=== PATIENT | male | born 1975 | race Caucasian/White ===

== ENCOUNTER → 2024-12-10 | Outpatient (CLI) | payer OTHER, SELFPAY ==
[2024-12-10 09:54] LABS: Glucose Estimated Average 272 mg/dL (80-131); Hemoglobin A1C 11.1 % Hgb (4.8-6.0)
[2024-12-10 09:58] LABS: Alanine Aminotransferase 42 U/L (10-49); Albumin, Serum 4.7 gm/dL (3.5-5.0); Albumin/Globulin Ratio 1.9 (1.2-2.2); Alkaline Phosphatase 120 U/L (46-116); Anion Gap 9 (7-16); Aspartate Amino Transferase 27 U/L (0-34); BUN/Creatinine Ratio 17 Ratio (12-20); Bilirubin,Total 0.4 mg/dL (0.3-1.2); Blood Urea Nitrogen 15 mg/dL (9-23); Calcium 9.4 mg/dL (8.3-10.6); Calcium (Corrected) 9.4 mg/dL (8.5-10.1); Carbon Dioxide 25.8 mMol/L (20.0-31.0); Cardiac Risk Estimate 5.6 RATIO (4.0-6.7); Chloride 98 mMol/L (98-107); Cholesterol 250 mg/dL (132-200); Creatinine (Component) 0.9 mg/dL (0.6-1.3); Globulin 2.5 gm/dL (2.3-3.5); Glucose 353 mg/dL (74-106); HDL Cholesterol 45 mg/dL (40-60); LDL Cholesterol,Calculated 167 mg/dL (0-130); Osmolality,Calculated 281 (275-295); Potassium 4.8 mMol/L (3.4-5.1); Sodium 133 mMol/L (136-145); Total Protein 7.2 gm/dL (5.7-8.2); Triglycerides 188 mg/dL (30-150); eGFR > 60 See Note
== END | disposition home or self-care (01) ==
LOC: COPL 08:22
PROVIDERS: PCP Family Medicine; Referring Provider Family Medicine; Visit Provider Family Medicine
DX: E11.65 Type 2 diabetes mellitus with hyperglycemia (principal); K21.9 Gastro-esophageal reflux disease without esophagitis; E78.2 Mixed hyperlipidemia
CPT/HCPCS: 36415; 80053; 80061; 83036

== ENCOUNTER 2025-03-13 08:25 | Inpatient (IN) | payer OTHER, BC, SELFPAY ==
[2025-03-13] VITALS (9 sets, daily range): BP systolic 104–143; BP diastolic 76–91; PULSE 72–89; RESP 16–20; TEMP 36.7–37.2; O2SAT 94–98; BMI 32.1
--- NOTE | 2025-03-13 | XR_ITS ---
Examinations: MRI Brain without intravenous contrast. MRI brain with intravenous contrast MRA brain with intravenous contrast. MRA brain without intravenous contrast MRA neck with intravenous contrast Date and time of exam: March 13, 2025, 1211 hours INDICATIONS: Stroke alert this morning, onset focal neurologic deficit beginning 6:00 PM last night Technique: Multiple axial and sagittal images of the brain have been obtained Siemens high-resolution 1.5 Jenny short bore scanner is utilized. Sagittal sections, T1-weighted, TR 500, TE 14 Axial sections proton density and T2-weighted, TR 3,000, TE 34, TR 3,000, TE 91 Inversion recovery axial images, TR 9,260, TE 111, TI 2,500 Diffusion weighted images, axial sections, TR 4,800, TE 128, B value 1,000 Axial sections, ADC map, TR 4,800, TE 128. Contrast images have been obtained post intravenous 20 cc Gadolinium. T1-weighted axial and coronal images post contrast have been obtained. Angiographic images of neck and brain are obtained pre and post contrast. 3-D post processing performed, including brain, extracranial neck arterial maximum intensity projections Findings: Sellaturcica is not enlarged. The optic chiasm and infundibular stalk are not remarkable. Prepontine and interpeduncular cisterns are not enlarged. No localized enlargement of the medulla or ely. Fourth ventricle and cerebellar tonsils normal in position. Subacute hemorrhage is not seen. Fourth ventricle is midline. Mass in the cerebellopontine angle region is not evident. 7th and 8th nerve complexes exhibits symmetry. Globes are symmetrical with no retro-orbital mass. Increased white matter signal not seen Diffusion-weighted images demonstrate3 mm focus restricted diffusion right frontal lobe diffusion image 11 without definite signal deficit. Mass-effect upon the ventricular system is not identified. Abnormal contrast enhancement is noted seen. MRA brain carotid images no significant carotid stenoses, no large vessel occlusions Impression: 3 mm focus restricted diffusion right frontal lobe without definite signal deficit on the ADC map, recommend neurology consultation and correlation with clinical findings No MR findings diagnostic for demyelinating disease No carotid significant stenoses No cerebral large vessel arterial occlusions
--- NOTE | 2025-03-13 08:44 | PC.NURSE ---
PT TO CT
--- NOTE | 2025-03-13 08:46 | XR_ITS ---
Examination: CTA carotids with intravenous contrast CTA brain, head with intravenous contrast. 2-D sagittal, coronal reconstructions. 3-D reconstructions. Exam date and time: March 13, 2025, 0857 hours INDICATIONS: Stroke alert, onset right-sided facial droop beginning this morning CTDI: vol (mGy) 30.5 DLP: (mGycm) 458 Technique: Multiple CTA axial brain, head carotid images post intravenous contrast injection 75 cc, [id number]. 2-D sagittal, coronal reconstructions. 3-D reconstructions, 3-D post processing including vascular maximum intensity projection images. Low dose protocols were performed. One or more of the following dose reduction techniques were used; automated exposure control, adjustment of the mA and/or KV according to patient size, use of iterative reconstruction technique. Findings: No significant common carotid carotid bifurcation or internal carotid artery stenoses Dominant left vertebral artery with no critical vertebral artery stenoses in the neck Intracranial vertebral arteries basilar artery posterior cerebral branches fill with no occlusions Juxtasellar internal carotid arteries mild calcification no stenoses M1 segments middle cerebral arteries middle cerebral artery trifurcation vessels anterior cerebral arteries intact with no large vessel occlusions IMPRESSION: No significant neck arterial stenoses No cerebral large vessel arterial occlusions
--- NOTE | 2025-03-13 08:46 | EKG_ITS ---
[facility] Test Date: 2025-03-13 Pat Name: JESSE OROZCO Department: Room: - Gender: Male Sanitation Officer: : 1975 Requested By: Reina Chavez Order Number: [id number] Reading MD: Reina Chavez Measurements Intervals [place] Rate: 75 P: 14 HI: 166 QRS: 10 QRSD: 98 T: 46 QT: 404 QTc: 452 Interpretive Statements SINUS RHYTHM Compared to ECG 09/02/2020 21:26:31 Myocardial infarct finding no longer present /store/S0/[id number].pdf
--- NOTE | 2025-03-13 08:46 | XR_ITS ---
Examination: AP chest single view Technique one AP portable upright chest single view Date and time: March 13, 2025, 0907 hours INDICATIONS: Stroke alert yesterday FINDINGS: Normal heart size The lungs are clear. Prominent osteopenia IMPRESSION: Negative for aspiration pneumonia
--- NOTE | 2025-03-13 08:46 | XR_ITS ---
Examination: CT brain head without contrast. 2-D sagittal coronal reconstructions Date and time of exam:March 13, 2025, 0852 hours, comparison September 02, 2020 INDICATIONS: Stroke alert, onset focal neurologic deficit, including right-sided facial droop beginning this morning CTDI: vol (mGy):55.8 DLP: (mGycm):1136 Technique: Multiple CT axial sections of the brain have been obtained, 5 mm slice thickness. Contrast has not been administered. 2-D sagittal, coronal reconstructions have been obtained Low dose protocols were performed. One or more of the following dose reduction techniques were used; automated exposure control, adjustment of the mA and/or KV according to patient size, use of iterative reconstruction technique. Findings: Right frontal craniotomy defect Ventricles are not enlarged No interval acute hemorrhage mass effect or midline shift Fourth ventricle midline No cranial vault fractures IMPRESSION: No interval acute hemorrhage mass effect or midline shift
--- NOTE | 2025-03-13 08:47 | PD.EDNEURO ---
Neuro Symptoms Deficit-RME/HPI General Chief Complaint: Neuro Symptoms/Deficit Stated Complaint: Right eye drooping since 6pm yest, & gen. weak Time Seen by Provider: 03/13/25 08:53 Arrival date/time: 03/13/25 08:25 Limitations: no limitations RME / HPI RME / HPI Narrative: Patient is a 49-year-old male with medical history notable for diabetes is in the emerged from with concerns for right-sided facial droop, and double vision. With regards to the facial droop that started approximately 7:30 in the morning. Patient and his were concerned so came to the emergency department. Patient states that with progressive double vision he has had the symptoms on and off for the last couple weeks. States that he went to see an wind energy project manager, his eye was not dilated, they told him that this could be likely secondary to his diabetes and sent him home. No further assessments were done. Has not seen an wind development director about this. Prior to this patient's vision was intact. Patient confirmed that his symptoms were coming and going. Patient does not wear glasses. Patient's vision is better if he covers the right eye. Of note patient also has a history of neurosurgery performed he is 12 years old secondary to traumatic injury that resulted in an intracranial hematoma that need to be evacuated. Patient does not take any blood thinners. Related Data Home Medications ?Medication ?Instructions ?Recorded ?Confirmed carbamazepine 300 mg 300 mg PO BID 03/13/25 03/13/25 capsule,extended release [id number] (Carbatrol) dapagliflozin propanediol 10 mg 10 mg PO QAM 03/13/25 03/13/25 tablet (Farxiga) escitalopram oxalate 20 mg tablet 20 mg PO QDAY 03/13/25 03/13/25 (Lexapro) glyburide PO BID 03/13/25 Held on 03/13/25. Instructions: Duplicate glyburide 5 mg tablet mg 03/13/25 insulin glargine 100 unit/mL 10 unit subcut QPM 03/13/25 03/13/25 subcutaneous solution (Lantus U-100 Insulin) rabeprazole 20 mg tablet,delayed 20 mg PO QDAY 03/13/25 03/13/25 release (AcipHex) semaglutide 0.25 mg or 0.5 mg (2 0.5 mg subcut QWEEK 03/13/25 03/13/25 mg/1.5 mL) subcutaneous pen injector (Ozempic) Previous Rx's ?Medication ?Instructions ?Recorded acyclovir 800 mg tablet 800 mg PO QID #35 tabs 09/02/20 Held on 03/13/25. Instructions: Doctor's Order prednisone 10 mg tablet 30 mg (3 x 10 mg) PO BID #18 tabs 09/02/20 Held on 03/13/25. Instructions: Doctor's Order cyclobenzaprine 7.5 mg tablet 7.5 mg PO TID PRN muscle spasm #14 05/02/21 Held on 03/13/25. tabs Instructions: Doctor's Order ibuprofen 800 mg tablet (IBU) 800 mg PO TID PRN pain #30 tabs 05/02/21 Held on 03/13/25. Instructions: Order Change Allergies Allergy/AdvReac Type Severity Reaction Status Date / Time sulfamethoxazole (From Allergy Verified 03/13/25 08:30 Bactrim) trimethoprim (From Bactrim) Allergy Verified 03/13/25 08:30 ED Exam General Limitations: Present no limitations General appearance: Present alert and in no apparent distress Head Head exam: Present atraumatic, normocephalic and other Eye Eye exam: Present PERRL; Absent normal appearance (Patient with right eyelid droop, patient is able to wrinkle his brow bilaterally), EOMI (Patient with difficulties abducting the right eye. Patient with double vision with both eyes open and also with the right eye uncovered. Double vision resolves when covering the right eye. Patient able to look up look down and look to the right without any difficulties.), conjunctival injection, nystagmus, miosis, mydriasis, periorbital swelling or periorbital tenderness ENT ENT exam: Present normal exam and normal oropharynx Neck Neck exam: Present normal inspection Chest Chest inspection: Present normal inspection and symmetric chest wall rise Respiratory Respiratory exam: Present normal lung sounds bilaterally; Absent respiratory distress or wheezes Cardiovascular Cardiovascular exam: Present regular rate and normal rhythm Abdominal Exam Abdominal exam: Present soft; Absent distention, tenderness or guarding Extremities Exam Extremities exam: Present normal inspection and full ROM; Absent tenderness Back Exam Back exam: Present normal inspection Neurological Exam Neurological exam: Present alert, oriented X3, normal gait and other (Strong in all 4 extremities, sensation intact in all 4 extremities. Patient able to do [id number] and finger-nose without difficulties. Visual mota are intact); Absent CN II-XII intact Psychiatric Psychiatric exam: Present normal affect and normal mood Course Quality Measures none Orders Category Date Time Status Bedside Blood Glucose NOW Care 03/13/25 08:46 Completed Material Chaser NOW Care 03/13/25 08:46 Active Continuous Pulse Oximetry NOW Care 03/13/25 08:46 Completed EKG (ED ONLY) *Do not use* NOW Care 03/13/25 08:46 Completed Insert IV NOW Care 03/13/25 08:46 Active NIH Stroke Scale now Care 03/13/25 08:46 Active NPO NOW Care 03/13/25 08:46 Active Neuro Check Q1HR Care 03/13/25 08:46 Active Nurse Swallow Screen x1 Care 03/13/25 08:46 Active Consult to Neurology / Tele-Neurology Routine Cons 03/13/25 08:[address] angio stroke protocol Stat Exams 03/13/25 08:[address] stroke protocol Stat Exams 03/13/25 08:46 Completed EKG (ED Only) Stat Exams 03/13/25 08:46 Draft XR chest 1V portable Stat Exams 03/13/25 08:46 Completed CBC Stat Lab 03/13/25 08:55 Completed Comprehensive Metabolic Panel Stat Lab 03/13/25 08:55 Completed Drug Screen,Urine Stat Lab 03/13/25 09:40 Completed Magnesium Stat Lab 03/13/25 08:55 Completed Partial Thromboplastin Time Stat Lab 03/13/25 08:55 Completed Prothrombin Time with INR Stat Lab 03/13/25 08:55 Completed Troponin I Stat Lab 03/13/25 08:55 Completed Urinalysis, C/S if Indicated Stat Lab 03/13/25 09:35 Completed Acyclovir Inj [Zovirax Inj] 800 mg Med 03/13/25 10:41 Pending Sodium Chloride 0.9% [Ns] 100 ml IV STAT Aspirin [Ecotrin] Med 03/13/25 10:56 Discontinued 81 mg PO X1 ONE Oxygen Delivery NOW RT 03/13/25 08:46 Active Vital Signs Vital signs: Vital Signs Temperature 98.7 F 03/13/25 08:32 Pulse Rate 76 03/13/25 08:32 Respiratory Rate 18 03/13/25 08:32 Blood Pressure 135/86 H 03/13/25 08:32 Pulse Oximetry (%) 98 03/13/25 08:32 Oxygen Delivery Method Room Air 03/13/25 08:32 Neuro Symptoms / Deficit MDM Narrative [facility] Narrative:: Patient is a 49-year-old male is in Emergency Department concerns for intermittent episodes of monocular diplopia as well as right-sided facial droop. Vital signs and exam as listed. Patient with a cranial nerve palsy on the right side, as well as new facial droop of the right brow. Lower face with symmetric smile, no tongue deviation, sensation intact. No dysarthria. Given history and exam concern for acute stroke, stroke alert ordered. Symptoms are not consistent with Daley's palsy given the sparing of the lower face as well as the monocular diplopia. Also concern for metabolic disturbance, cranial nerve V was evaluated the etiology among others. Ordered CT brain, CT angio labs EKG will consult neurologist. Labs without any acute hematologic or significant metabolic abnormality. Troponin not elevated. Urinalysis without evidence of infection. CT brain read by radiologist without any acute findings. Our on-call teleneurologist Dr. Pederson read the CT, identified a hypodensity in the posterior circulation. She called me directly and discussed. She also cannot hide patient's cranial nerve palsy. Recommends admission for MRI with and without contrast. Also recommends aspirin 81. With regards to the hypodensity in the posterior circulation, she also recommends that we empirically cover with acyclovir 800 mg one-time as his acute cranial nerve palsy, and ptosis could be of infectious etiology. Recommends further evaluation of the symptoms from the perspective of a possible infectious etiology in the event that the MRI does not identify the cause for patient's current presentation. Discussed case with hospitalist service will admit. Patient data External records reviewed:: [facility] previous records Clinical information provided by:: patient Social determinants that could affect healthcare access:: none Patient has the following chronic illnesses:: See MDM How is presenting disease/condition affected by chronic disease/condition?: exacerbated by Evaluation data The following diagnostics were reviewed and interpreted by me:: lab results, radiology exam(s) and EKG tracing(s) Lab and/or radiology exams considered but not ordered:: None Interpretation Summary: See MDM Medications / Prescriptions Medications or Prescriptions considered but not ordered:: None Medication administrations:: Medication Administration History Acyclovir Sodium 800 mg/ (Sodium Chloride) 116 mls @ 100 mls/hr IV STAT STA Stop: 03/13/25 11:40 Discontinued Medications Aspirin (Aspirin Ec 81 Mg Tabec) 81 mg PO X1 ONE Stop: 03/13/25 10:57 See above Consultations Consultation(s) initiated? (list below): Yes Consultation #1 (Physician, Specialty, Details): See MDM Diagnosis Neuro Differential Diagnosis: other (See MDM) Most likely diagnosis given after review of the tests above:: Cranial nerve palsy, ptosis Admission Indicated Admission indicated?: indicated Admission Request Was there a request for admission?: Yes Admission Attestation Admission request attestation: Discussed case with [] from Hospitalist service regarding admission. Discussed patients ED course, exam findings, labs, and radiology results. The Hospitalist [agrees,declines] to accept the patient for admission. Disposition Plan Disposition Plan: Admit Discharge Plan Prescriptions/Referrals Prescriptions/Med Rec: No Action cyclobenzaprine 7.5 mg tablet 7.5 mg PO TID PRN (Reason: muscle spasm) Qty: 14 0RF ibuprofen [IBU] 800 mg tablet 800 mg PO TID PRN (Reason: pain) Qty: 30 0RF prednisone 10 mg tablet 30 mg PO BID Qty: 18 0RF Rx Instructions: administer with food or milk acyclovir 800 mg tablet 800 mg PO QID MDD Take 5 tablets a day for 7 day Qty: 35 0RF Ozempic 0.25 mg or 0.5 mg(2 mg/1.5 mL) pen injector 0.5 mg subcut QWEEK dapagliflozin propanediol [Farxiga] 10 mg tablet 10 mg PO QAM rabeprazole [AcipHex] 20 mg tablet,delayed release (DR/EC) 20 mg PO QDAY glyburide PO BID escitalopram oxalate [Lexapro] 20 mg tablet 20 mg PO QDAY carbamazepine [Carbatrol] 300 mg capsule, ER multiphase 12 hr 300 mg PO BID insulin glargine [Lantus U-100 Insulin] 100 unit/mL solution 10 unit subcut QPM glyburide 5 mg tablet Patient Comments: TAKE 1 TABLET WITH BREAKFAST OR THE FIRST MAIN MEAL OF THE DAY ORALLY TWICE A DAY FOR 90 DAYS Referrals: Josh Caba MD [Primary Care Provider, Family Practice] - In 1 week Problem List Clinical Impression: Cranial nerve palsy, Double vision, Ptosis Patient/Caregiver Discharge Instructions Print Language: Nepalese
[2025-03-13 09:14] LABS: Basophils # (Auto) 0.0 Thou/mm3 (0.0-0.2); Basophils % (Auto) 1 % (0-2.5); Eosinophils # (Auto) 0.1 Thou/mm3 (0.0-0.5); Eosinophils % (Auto) 1 % (0-10); Hematocrit 41.7 % (41.0-53.0); Hemoglobin 14.4 g/dL (13.5-16.0); Immature Granulocytes Auto 0.02 Thou/mm3 (0.00-0.00); Lymphocytes # (Auto) 2.3 Thou/mm3 (1.0-4.8); Lymphocytes % (Auto) 28 % (10-50); Mean Corpuscular HGB Conc 34.5 g/dl (31.0-37.0); Mean Corpuscular Hemoglobin 29.9 pg (25.0-35.0); Mean Corpuscular Volume 87 fL (80-100); Monocytes # (Auto) 0.5 Thou/mm3 (0.0-0.8); Monocytes % (Auto) 6 % (0-12); Neutrophils # (Auto) 5.2 Thou/mm3 (1.8-7.7); Neutrophils % (Auto) 64 % (37-80); Nucleated Red Blood Cell # 0.00 Thou/mm3 (0.00-0.00); Nucleated Red Blood Cell % 0 /100 WBC (0); Platelet Count 229 Thou/mm3 (140-440); RDW Standard Deviation 39.0 fL (35.1-43.9); Red Blood Count 4.81 Miln/mm3 (4.50-5.90); White Blood Count 8.2 Thou/mm3 (3.8-10.6)
--- NOTE | 2025-03-13 09:20 | PD.TNEURO ---
Tele Neuro Consultation Consultation Date 03/13/25 Most Recent Vital Signs Last Vital Signs Temp 98.7 F 03/13/25 08:32 Pulse 76 03/13/25 08:32 Resp 18 03/13/25 08:32 BP 135/86 H 03/13/25 08:32 Pulse Ox 98 03/13/25 08:32 O2 Del Method Room Air 03/13/25 08:32 Consultation Narrative [facility] Patient Name:???JESSE OROZCO Date of :???1975 Identification Number:??? Date of Service:???03/13/2025 08:43:08 Diagnosis:?H53.2 - Diplopia ?R29.810 - Facial numbness/ Facial weakness Impression: ?49 yr old man hx of R frontal brain surgery post trauma at age 12, DM, comes with diplopia, R ptosis. He reported for the last week, he seemed to have blurred vision, and last night noted R ptosis, around 1800. He went to his mri ct tech few days ago with diplopia and was told he may have had a mini stroke ?He came to ER today because ssx persist and noted R ptosis. NIH 1- gait deferred, R eye adduction abnormality, no vf defect, binocular diplopia. R ptosis. ?He denied fever, chills, neck stiffness, no tick bites, no rash. He denied eye pain, headache. ?CT head- by radiology- R frontal craniotomy defect.no acute changes. ?Upon my view, ? subtle L temporal hypodensity. ?no hemorrhage. ?DIff Dx: r/o CVA, KAIAKO KOHANGA REO infection, encephalitis, other ophthalmologic DM related CN palsy, Daley's less likely. out of iv thrombolytic window. Our recommendations are outlined below. Recommendations: ? Stroke/Telemetry Floor ? Neuro Checks (Q4) ? Bedside Swallow Eval ? DVT Prophylaxis ? IV Fluids, Normal Saline ? Head of Bed 30 Degrees ? Euglycemia and Avoid Hyperthermia (PRN Acetaminophen) ? Initiate or continue Aspirin 81 MG daily ? Antihypertensives PRN if Blood pressure is greater than 220/120 or there is a concern for End organ damage/contraindications for permissive HTN. If blood pressure is greater than 220/120 give labetalol PO or IV or Vasotec IV with a goal of 15% reduction in BP during the first 24 hours. ?- would rec MRI brain w and wout kayode to r/;o infection, CVA ?- CTA head neck pending ?- May need further testing, spinal tap, depending on MRI results, clinical course ?- can cover empirically with antiviral and antibiotics ?- ophthalmology eval ?- Neuro fup ?d/w pt, RN ?d.w ER Dr Frey All the recs. Sign Out: ? Discussed with Emergency Department Provider Advanced Imaging:Advanced imaging has been ordered. Results pending. Metrics: Last Known Well: Unknown Dispatch Time: 03/13/2025 08:43:08 Arrival Time: 03/13/2025 08:25:00 Initial Response Time: 03/13/2025 08:47:23Symptoms: blurred, R facial droop. Initial patient interaction: 03/13/2025 08:52:22 NIHSS Assessment Completed: 03/13/2025 09:00:49Patient is not a candidate for Thrombolytic. Thrombolytic Medical Decision: 03/13/2025 09:00:50Patient was not deemed candidate for Thrombolytic because of following reasons: LKW outside 4.[address] Head: CT head unremarkable for acute infarction or hemorrhage per Radiology: R frontal craniotomy defect.no acute changes. Primary Provider Notified of Diagnostic Impression and Management Plan on: 03/13/2025 09:13:51 History of Present Illness:Patient is a 49 year old Male. Patient was brought by private transportation with symptoms of blurred, R facial droop. 49 yr old man hx of R frontal brain surgery post trauma at age 12, DM, comes with diplopia, R ptosis. He reported for the last week, he seemed to have blurred vision, and last night noted R ptosis, around 1800. He went to his mri ct tech few days ago with diplopia and was told he may have had a mini stroke He came to ER today because ssx persist and noted R ptosis. NIH 1- gait deferred, R eye adduction abnormality, no vf defect, binocular diplopia. He denied fever, chills, neck stiffness, no tick bites, no rash. ? Past Medical History: ?Diabetes Mellitus Other PMH:? R frontal brain surgery post trauma at age 12 Medications: No Anticoagulant use? No Antiplatelet use Reviewed EMR for current medications Allergies:? Reviewed Social History: Smoking: No Family History: There is no family history of premature cerebrovascular disease pertinent to this consultation ROS : 14 Points Review of Systems was performed and was negative except mentioned in HPI. Past Surgical History: There Is No Surgical History Contributory To Today?s Visit ? Examination: BP(124/83),?Pulse(74),?Blood Glucose(113) 1A: Level of Consciousness - Alert; keenly responsive?+ 0 1B: Ask Month and Age - Both Questions Right?+ 0 1C: Blink Eyes & Squeeze Hands - Performs Both Tasks?+ 0 2: Test Horizontal Extraocular Movements - Partial Gaze Palsy: Can Be Overcome?+ 1 3: Test Visual Pace - No Visual Loss?+ 0 4: Test Facial Palsy (Use Grimace if Obtunded) - Normal symmetry?+ 0 5A: Test Left Arm Motor Drift - No Drift for 10 Seconds?+ 0 5B: Test Right Arm Motor Drift - No Drift for 10 Seconds?+ 0 6A: Test Left Leg Motor Drift - No Drift for 5 Seconds?+ 0 6B: Test Right Leg Motor Drift - No Drift for 5 Seconds?+ 0 7: Test Limb Ataxia (FNF/Heel-Hutchison) - No Ataxia?+ 0 8: Test Sensation - Normal; No sensory loss?+ 0 9: Test Language/Aphasia - Normal; No aphasia?+ 0 10: Test Dysarthria - Normal?+ 0 11: Test Extinction/Inattention - No abnormality?+ 0 NIHSS Score:?1 NIHSS Free Text :?gait deferred, R eye adduction abnormality, no vf defect, binocular diplopia, R ptosis. Pre-Morbid Modified Oglesby Scale: 0 Points = No symptoms at all Spoke with :?ER Dr rFey This consult was conducted in real time using interactive audio and video technology. Patient was informed of the technology being used for this visit and agreed to proceed. Patient located in hospital and provider located at home/office setting. Patient is being evaluated for possible acute neurologic impairment and high probability of imminent or life-threatening deterioration. I spent total of 45 minutes providing care to this patient, including time for face to face visit via telemedicine, review of medical records, imaging studies and discussion of findings with providers, the patient and/or family. Dr Soheila Pederson [facility] For Inpatient follow-up with [facility] physician please call [facility] at . As we are not an outpatient service for any post hospital discharge needs please contact the hospital for assistance. If you have any questions for the [facility] physicians or need to reconsult for clinical or diagnostic changes please contact us via [facility] at . Signature :Roya Pederson ?
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
[2025-03-13 09:31] LABS: INR 1.1 (0.9-1.3); Partial Thromboplastin Time 27.9 Seconds (22.0-36.0); Prothrombin Time 11.7 Seconds (9.0-12.2)
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
[2025-03-13 09:43] LABS: Alanine Aminotransferase 30 U/L (10-49); Albumin, Serum 4.8 gm/dL (3.5-5.0); Albumin/Globulin Ratio 2.0 (1.2-2.2); Alkaline Phosphatase 115 U/L (46-116); Anion Gap 11 (7-16); Aspartate Amino Transferase 17 U/L (0-34); BUN/Creatinine Ratio 19 Ratio (12-20); Bilirubin,Total 0.4 mg/dL (0.3-1.2); Blood Urea Nitrogen 15 mg/dL (9-23); Calcium 9.4 mg/dL (8.3-10.6); Calcium (Corrected) 9.4 mg/dL (8.5-10.1); Carbon Dioxide 27.1 mMol/L (20.0-31.0); Chloride 104 mMol/L (98-107); Creatinine (Component) 0.8 mg/dL (0.6-1.3); Globulin 2.4 gm/dL (2.3-3.5); Glucose 113 mg/dL (74-106); Magnesium 1.9 mg/dL (1.6-2.6); Osmolality,Calculated 284 (275-295); Potassium 4.4 mMol/L (3.4-5.1); Sodium 142 mMol/L (136-145); Total Protein 7.2 gm/dL (5.7-8.2); Troponin I < 0.002 ng/mL (0.0-0.045); eGFR > 60 See Note
[2025-03-13 09:52] LABS: Collection Type, Urine Clean Catch; Squamous Epithelial Cell,Urine 0 /hpf (0-5)
[2025-03-13 10:04] LABS: Bilirubin,Urine Negative (Negative); Blood,Urine Negative (Negative); Clarity,Urine Clear (Clear/Hazy); Color,Urine Lt-Yellow (Lt Yel-Yel); Culture Indicated,Urine Not Indicated; Glucose, Urine 4+ (Negative); Ketones,Urine Negative (Negative); Leukocyte Esterase,Urine Negative (Negative); Nitrite,Urine Negative (Negative); PH,Urine 6.5 (5.0-7.0); Protein,Urine Negative (Neg - Trace); RBC,Urine 1 /hpf (0-3); Specific Gravity,Urine 1.044 (1.001-1.035); Urobilinogen,Urine Negative mg/dL (0.0-1.0); WBC,Urine < 1 /hpf (0-5)
[2025-03-13 10:05] LABS: Amphetamine/Methamp Scrn,U Negative (Negative); Barbiturate Screen,Urine Negative (Negative); Benzodiazepines Screen,Urine Negative (Negative); Benzoylecgonine Screen, Ur Negative (Negative); Fentanyl Screen,Urine Negative (Negative); Opiate Screen,Urine Negative (Negative); THC Screen,Urine Negative (Negative)
[2025-03-13] MEDS: ASPIRIN EC 81 MG TABEC PO (11:07)
--- NOTE | 2025-03-13 11:14 | PC.NURSE ---
per MD patient is ok to eat at this time, patient has passed the swallow eval
[2025-03-13] MEDS: Magnesium Sulfate 4 GM Ivpb 4 GM/50 ML BAG IV (11:46)
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
--- NOTE | 2025-03-13 12:15 | PD.RESCONSUL ---
HPI Data of Consult Requesting Physician: Fletcher Patiño DO Admitting Provider: Fletcher Patiño DO Attending Provider: Fletcher Patiño DO Primary Care Provider: Josh Caba MD Consult Narrative History of present illness: This patient is a 49-year-old male with past medical history of right frontal brain surgery post trauma with evacuation of intracranial hematoma at age 12, type 2 diabetes presented to the ED on 03/13/2025 with chief complaint of diplopia, right facial droop and right side ptosis. Patient reported that symptoms started last week when he noticed blurred vision and today patient's noted right side ptosis around 1800. Patient went to see baggage smasher a few days ago with diplopia and was informed that he might have a TIA. Due to symptoms persistence patient presented to the ER. NIHSS is 1. Patient was found to have right eye adduction abnormality without visual field defect. He was noted to have binocular diplopia and right-sided ptosis. Patient denied using glasses. He reported to have better vision with right eye being covered.Stroke alert was initiated. Patient was out of window for tPA. In the ED, vitals showed slight labile blood pressure, regular heart rate and afebrile. Saturating well on room air. Labs were unremarkable. Chemistry panel showed electrolytes unremarkable. Troponin I was not elevated. Kidney functions within normal limits. Blood glucose 113. A1c 11.1 from 12/10/2024. Urinalysis was negative. U tox was negative. EKG showed sinus rhythm with QTc [address]-T changes.In the ED, patient received magnesium sulfate and aspirin 81 mg PMH: Daley's palsy in 2020 PSH:Neurosurgical procedure for blood clot in brain at age 12, vasectomy 2 years ago SH: Denies smoking, drinking alcohol or illicit drug use Allergies: NKDA Family history: No family history of CVA Home medications insulin 20 units, Ozempic 0.5 once every week, cyclobenzaprine as needed for muscle spasm Patient was seen and examined at the bedside. Patient reported that he started noticing double vision with sinus pressure on right side a week ago. He went to see an baggage smasher who stated that his IOP pressure was normal and eye movements were not painful. His noticed right sided eye ptosis. Patient denied any dizziness. Patient reported his blood sugars have been under control around 120s and has been on the lower side. A1c was uncontrolled in November 2024 around 11. Patient is currently using insulin 20 units and Ozempic 0.5 to reduce weight. He also snores at night. Patient did had an episode of Daley's palsy in 2020. He had cold sores off-and-on in the past. MRI brain showed 3 mm focus restricted diffusion right frontal lobe less likely to be stroke. can follow with echo with bubble study to complete w/up. Patient appears to have III and cranial nerve palsy related to DM.Recommended to continue aspirin 81 mg and atorvastatin 40 mg at bedtime. Encouraged on extra-orbital ocular exercises and anticipate slow spontaneous recovery. no need of anti-viral therapy. cc:: cc: Fletcher Patiño DO Review of Systems Review of Systems Systems Reviewed: All systems reviewed, normal except as documented Past Medical History Past Medical History NEUROLOGIC: Positive Traumatic Brain Injury (32 yrs ago) CARDIAC: Negative Congestive Heart Failure RESPIRATORY: Negative Chronic Obstructive Pulmonary Disease (COPD) GENITOURINARY: Negative Renal Disease ENDOCRINE: Positive Diabetes Mellitus Type 2; Negative Diabetes Mellitus Type 1 Social History SMOKING STATUS: Never smoker Travel History EBOLA RISK: No Exam Vital Signs Temp Pulse Resp BP Pulse Ox O2 Del Method 98.9 F 89 19 127/88 H 95 Room Air 03/13/25 10:11 03/13/25 11:14 03/13/25 11:14 03/13/25 11:14 03/13/25 11:14 03/13/25 11:14 Narrative Exam GENERAL APPEARANCE: AxOx4, generally well-appearing male, no acute distress. Eye exam: Present PERRL; Absent normal appearance (Patient with right eyelid droop, patient is able to wrinkle his brow bilaterally), EOMI (Patient with difficulties abducting the right eye. Patient with double vision with both eyes open and also with the right eye uncovered. Double vision resolves when covering the right eye. Patient able to look up look down and look to the right without any difficulties.), conjunctival injection, nystagmus, miosis, mydriasis, periorbital swelling or periorbital tenderness NECK: Supple without lymphadenopathy. No stiffness or restricted ROM. HEART: Normal rate and regular rhythm, normal S1/S2, no m/r/g LUNGS: CTAB, moving air well. No crackles or wheezes are heard. ABDOMEN: Soft, nontender, nondistended with good bowel sounds heard. BACK: No CVAT, no obvious deformity. EXTREMITIES: Without cyanosis, clubbing or edema. NEUROLOGICAL: Grossly nonfocal. Alert and oriented, moving all 4 extremities.Right eye ptosis. observed to ambulate with normal gait. Skin: Warm and dry without any rash. Psych: Appropriate mood and affect Results Labs 03/14/25 04:44 03/14/25 04:44 Labs: Short CBC 03/13/25 Range/Units 08:55 WBC 8.2 (3.8-10.6) Thou/mm3 Hgb 14.4 (13.5-16.0) g/dL Hct 41.7 (41.0-53.0) % Plt Count 229 (140-440) Thou/mm3 BMP 03/13/25 08:55 Sodium 142 Potassium 4.4 Chloride 104 Carbon Dioxide 27.1 BUN 15 Creatinine 0.8 Glucose 113 H Calcium 9.4 Cardiac Enzymes 03/13/25 Range/Units 08:55 Troponin I < 0.002 (0.0-0.045) ng/mL Liver Function 03/13/25 Range/Units 08:55 Total Bilirubin 0.4 (0.3-1.2) mg/dL AST 17 (0-34) U/L ALT 30 (10-49) U/L Alkaline Phosphatase 115 (46-116) U/L Albumin 4.8 (3.5-5.0) gm/dL Urine 03/13/25 Range/Units 09:35 Urine Color Lt-Yellow (Lt Yel-Yel) Urine Clarity Clear (Clear/Hazy) Urine pH 6.5 (5.0-7.0) Ur Specific [place] 1.044 H (1.001-1.035) Urine Protein Negative (Neg - Trace) Urine Glucose (UA) 4+ A (Negative) Quality Measures Quality Measures VTE prophylaxis (Heparin SC) Medications Home Medications and Allergies Home Medications ?Medication ?Instructions ?Recorded ?Confirmed ?Type carbamazepine 300 mg 300 mg PO BID 03/13/25 03/13/25 History capsule,extended release [id number] (Carbatrol) escitalopram oxalate 20 mg tablet 20 mg PO QDAY 03/13/25 03/13/25 History (Lexapro) insulin glargine 100 unit/mL 10 unit subcut QPM 03/13/25 03/13/25 History subcutaneous solution (Lantus U-100 Insulin) rabeprazole 20 mg tablet,delayed 20 mg PO QDAY 03/13/25 03/13/25 History release (AcipHex) semaglutide 0.25 mg or 0.5 mg (2 0.5 mg subcut QWEEK 03/13/25 03/13/25 History mg/1.5 mL) subcutaneous pen injector (Ozempic) Allergies Allergy/AdvReac Type Severity Reaction Status Date / Time sulfamethoxazole (From Allergy Verified 03/13/25 08:30 Bactrim) trimethoprim (From Bactrim) Allergy Verified 03/13/25 08:30 Visit Medications Acetaminophen (Acetaminophen 325 Mg Tablet) 650 mg PO Q6H PRN PRN Reason: Pain 1-3 and/or Fever >100.1 Stop: 04/12/25 11:10 Aspirin (Aspirin Ec 81 Mg Tabec) 81 mg PO QDAY NEGRO Stop: 04/13/25 08:59 Atorvastatin Calcium (Atorvastatin Calcium 20 Mg Tablet) 80 mg PO HS NEGRO Stop: 04/12/25 20:59 Carbamazepine (Carbamazepine 200 Mg Tablet) 300 mg PO BID NEGRO Stop: 04/12/25 20:59 Dextrose (Dextrose 50%-Water Inj 50 Ml Syringe) 25 ml IV Q15MIN PRN PRN Reason: BG 50-70 responsive npo pt Stop: 04/12/25 11:10 Dextrose (Dextrose 50%-Water Inj 50 Ml Syringe) 50 ml IV Q15MIN PRN PRN Reason: BG <50 OR BG <70 & pt unresponsive Stop: 04/12/25 11:10 Escitalopram Oxalate (Escitalopram Oxalate 10 Mg Tablet) 20 mg PO QDAY NEGRO Stop: 04/13/25 08:59 Glucagon (Glucagon Inj 1 Mg Vial) 1 mg IM Q15MIN PRN PRN Reason: BG <70, and no IV access Heparin Sodium (Porcine) (Heparin Sod Inj 5000 Unit/Ml Vial) 5,000 unit SC Q12HR NEGRO Stop: 03/27/25 20:59 Acyclovir Sodium 700 mg/ (Sodium Chloride) 114 mls @ 98.276 mls/hr IV STAT STA Stop: 03/13/25 12:43 Magnesium Sulfate (Magnesium Sulfate Ivpb) 4 gm in 50 mls @ 12.5 mls/hr IV X1 ONE Stop: 03/13/25 15:14 Last Admin: 03/13/25 11:46 Dose: 12.5 mls/hr Insulin Degludec (Insulin Degludec 5 Unit/0.05 Ml (Per 5 Units)) 6 unit SC HS NEGRO Stop: 04/12/25 20:59 Insulin Human Lispro (Insulin Lispro (Admelog) 1 Unit/0.01 Ml Unit) 0 unit SC AC NEGRO; Protocol Stop: 04/12/25 11:29 Ondansetron HCl (Ondansetron Inj 2 Mg/Ml Inj 2 Ml) 4 mg IVP Q6H PRN; Protocol PRN Reason: NAUSEA OR VOMITING Stop: 04/12/25 11:10 Sennosides (Senna Tablet) 1 tab PO QDAY PRN; Protocol PRN Reason: constipation Stop: 04/12/25 11:10 Discontinued Medications Aspirin (Aspirin Ec 81 Mg Tabec) 81 mg PO X1 ONE Stop: 03/13/25 10:57 Last Admin: 03/13/25 11:07 Dose: 81 mg Insulin Human Lispro (Insulin Lispro (Admelog) 1 Unit/0.01 Ml Unit) 0 unit SC ACHS NEGRO; Protocol Stop: 04/12/25 11:29 Assessment & Plan Plan This patient is a 49-year-old male with past medical history of right frontal brain surgery post trauma with evacuation of intracranial hematoma at age 12, type 2 diabetes presented to the ED on 03/13/2025 with chief complaint of diplopia, right facial droop and right side ptosis. Admitted for stroke workup. 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 Right facial droop was noted at 1800. Symptoms started few weeks ago. Right eye adduction abnormality, binocular diplopia and right eye ptosis. Denied any fever chills or eye pain or rash. Pupil was not seen dilated. Patient does not wear glasses. Patient's vision is better if he covers his right eye. Patient was out of window for tPA. Head CT and head and neck CTA showed no acute changes. Head CT only showed right frontal craniotomy defect although there is a concern for hypodensity in posterior circulation. MRI brain showed 3 mm focus restricted diffusion right frontal lobe. Plan: MRI brain showed 3 mm focus restricted diffusion right frontal lobe less likely to be stroke. Can follow with echo with bubble study to complete w/up. Patient appears to have III and cranial nerve palsy related to DM.Recommended to continue aspirin 81 mg and atorvastatin 40 mg at bedtime. Encouraged on extra-ocular exercises daily and anticipate slow spontaneous recovery. no need of anti-viral therapy. #History of right frontal brain surgery post trauma with evacuation of intracranial hematoma #History of Daley's palsy in 2020 #History of insulin-dependent type 2 diabetes #History of muscle spasm Rest of the management as per primary team. Plan of care discussed with neurologist, Dr Caty Hodgson MD, PGY 3 Attending Provider Attestation/Addendum I personally have seen and examined the patient at the bedside and I agree with resident's findings, assessment and plan of care. Reassurance given to the patient regarding the negative MRI brain findings for acute infarction. Cranial nerves III and or dysfunction secondary to diabetes. Advised him to have better control of diabetes along with aspirin and statin. Continue to monitor him closely for 1 more day before discharging him.
--- NOTE | 2025-03-13 14:29 | PC.NURSE ---
pt arrived to floor at 1410
[2025-03-13] MEDS: HEPARIN SOD INJ 5000 UNIT/ML VIAL SC (20:13)
[2025-03-13] MEDS: ATORVASTATIN CALCIUM 20 MG TABLET 80 MG PO (20:13)
[2025-03-14] VITALS: BP 119/69; PULSE 80; RESP 16; TEMP 37.1; O2SAT 100
[2025-03-14 04:00] VITALS: BP 113/63; PULSE 101; PULSE 82; RESP 16; TEMP 36.9; O2SAT 100
[2025-03-14 05:26] VITALS: BMI 32.1
[2025-03-14 06:06] LABS: Basophils # (Auto) 0.0 Thou/mm3 (0.0-0.2); Basophils % (Auto) 1 % (0-2.5); Eosinophils # (Auto) 0.1 Thou/mm3 (0.0-0.5); Eosinophils % (Auto) 1 % (0-10); Hematocrit 43.6 % (41.0-53.0); Hemoglobin 14.6 g/dL (13.5-16.0); Immature Granulocytes Auto 0.04 Thou/mm3 (0.00-0.00); Lymphocytes # (Auto) 1.5 Thou/mm3 (1.0-4.8); Lymphocytes % (Auto) 17 % (10-50); Mean Corpuscular HGB Conc 33.5 g/dl (31.0-37.0); Mean Corpuscular Hemoglobin 29.3 pg (25.0-35.0); Mean Corpuscular Volume 88 fL (80-100); Monocytes # (Auto) 0.7 Thou/mm3 (0.0-0.8); Monocytes % (Auto) 8 % (0-12); Neutrophils # (Auto) 6.3 Thou/mm3 (1.8-7.7); Neutrophils % (Auto) 72 % (37-80); Nucleated Red Blood Cell # 0.00 Thou/mm3 (0.00-0.00); Nucleated Red Blood Cell % 0 /100 WBC (0); Platelet Count 221 Thou/mm3 (140-440); RDW Standard Deviation 39.9 fL (35.1-43.9); Red Blood Count 4.98 Miln/mm3 (4.50-5.90); White Blood Count 8.7 Thou/mm3 (3.8-10.6)
[2025-03-14 06:28] LABS: Anion Gap 12 (7-16); BUN/Creatinine Ratio 13 Ratio (12-20); Blood Urea Nitrogen 12 mg/dL (9-23); Calcium 9.8 mg/dL (8.3-10.6); Carbon Dioxide 28.2 mMol/L (20.0-31.0); Cardiac Risk Estimate 4.7 RATIO (4.0-6.7); Chloride 101 mMol/L (98-107); Cholesterol 184 mg/dL (132-200); Creatinine (Component) 0.9 mg/dL (0.6-1.3); Estimated Creatinine Clearance 112.6 mL/min (>60); Glucose 131 mg/dL (74-106); HDL Cholesterol 39 mg/dL (40-60); LDL Cholesterol,Calculated 120 mg/dL (0-130); Magnesium 2.4 mg/dL (1.6-2.6); Osmolality,Calculated 282 (275-295); Phosphorous 3.5 mg/dL (2.4-5.1); Potassium 4.3 mMol/L (3.4-5.1); Sodium 141 mMol/L (136-145); Triglycerides 125 mg/dL (30-150); eGFR > 60 See Note
[2025-03-14 06:36] LABS: Glucose Estimated Average 137 mg/dL (80-131); Hemoglobin A1C 6.4 % Hgb (4.8-6.0)
[2025-03-14] MEDS: ACETAMINOPHEN 325 MG TABLET 650 MG PO (07:18)
[2025-03-14 07:58] VITALS: BP 135/83; PULSE 105; RESP 18; TEMP 36.3; O2SAT 97
[2025-03-14 08:00] VITALS: PULSE 101
[2025-03-14] MEDS: ESCITALOPRAM OXALATE 10 MG TABLET 20 MG PO (09:07)
[2025-03-14] MEDS: ASPIRIN EC 81 MG TABEC PO (09:07)
[2025-03-14] MEDS: HEPARIN SOD INJ 5000 UNIT/ML VIAL SC (09:08)
--- NOTE | 2025-03-14 09:55 | PD.RESDS ---
Planned Discharge Date 03/14/25 DS: Providers Provider Date of admission: 03/13/25 11:18 Primary care physician: Josh Caba MD Admitting Provider: Fletcher Patiño DO Attending Provider on Admission: Fletcher Patiño DO Consults: 03/13/25 08:46 Consult to Neurology / Tele-Neurology Routine Comment: Consulting Provider: [facility] 03/13/25 11:15 Consult to Neurology / Tele-Neurology Routine Comment: Stroke r/o Consulting Provider: Ankit Byrne 03/13/25 11:16 Referral Physical Therapy Routine Comment: Physician Instructions: Attending Provider on DC: Fletcher Patiño DO Discharging Provider: Keith Curran DO Anticipated date of discharge: 03/14/25 DS: Diagnosis Problem List Completed Was Problem List Reviewed/Reconciled?: Yes Hospital Course Hospital Course Hospital course: Reason for hospitalization: Stroke rule out Summary: This patient is a 49-year-old male with past medical history of insulin-dependent type 2 diabetes mellitus, anxiety, mood disorders, and obesity who presented to [facility] ED on 03/13 due to right sided facial asymmetry. The patient was admitted for management of stroke rule out. Patient noted that about 1 week ago, he started to have double vision. When the patient went to see his conference center coordinator on Saturday 03/10, it was attributed to diabetic retinopathy. The patient's double vision would subside, however on 03/08 4 in the evening, the patient's noted that the patient's face was asymmetrical, with the right side drooping compared to the left. Due to his symptoms, stroke alert was called in ED, and patient received CT head and CTA head/neck, both of which were negative for acute findings. Teleneurology at the time evaluated the patient and recommended additional workup with MRI head, which showed a 3 mm focus of restricted diffusion in the right frontal lobe without definite signal deficit on the ADC. In-house neurology was consulted, and noted that the MRI head findings are less likely to be stroke. Neurology believes that the patient most likely has cranial nerve palsy of cranial nerve III and , likely related to his diabetes. Echocardiogram was taken on 03/14, to which the patient can follow-up outpatient. Neurology recommends extraocular exercises daily, continuing aspirin 81 mg and atorvastatin 40 mg, and no further need of antiviral therapy. Patient was advised to follow-up with outpatient ophthalmology regarding concerns for his double vision that is likely secondary to diabetic retinopathy. Additionally, the patient was advised to follow-up with outpatient neurosurgery given his history of right frontal brain surgery as a child. The patient's dapagliflozin and glipizide were stopped as the patient was noted to have a low blood glucose on without any insulin given during hospitalization. On 03/14, the patient is medically cleared to be discharged back home with self-care. Discharge Recommendations: - Continue rest of medications as previously prescribed - Return to the ED or call EMS if symptoms return and/or worsen - Please continue taking Aspirin 81 and atorvastatin 40 mg once a day at night - Please stop taking Acyclovir, cyclobenzaprine, dapagliflozin, glyburide, ibuprofen and prednisone - Please follow-up with your PCP and wildlife removal specialist within 1-2 week after discharge - Follow-up with Dr. Byrne (Neurologist) for CN 3 & 6 palsy in 2 weeks, call [phone] for your appointment - Follow-up with opthamologist regarding possible diabetic retinopathy leading to periodic blurry vision If you don't have a PCP, you can make an appointment at the [facility]: [address] [place] [address] Hospital Diagnoses: #Cranial nerve palsy III & , likely 2/2 T2DM #Stroke ruled out #History of right frontal apolonia surgery post trauma with evacuation of intracranial hematoma #History of Daley's palsy, 2020 #Insulin dependent T2DM #?Diabetic neuropathy #History of muscle spasms Patient plan of care was discussed with attending physician Dr. Haroon Curran, PGY-1 Status at Discharge Overall status at discharge: patient is back to baseline Time Spent with Patient Time attestation: Total time spent providing and/or coordinating discharge services: Time spent: Greater than 30 minutes Exam Vital Signs Temp Pulse Resp BP Pulse Ox O2 Del Method 97.4 F 105 H 18 135/83 H 97 Room Air 03/14/25 07:58 03/14/25 07:58 03/14/25 07:58 03/14/25 07:58 03/14/25 07:58 03/14/25 07:58 Narrative Exam Physical Exam: General: Alert, no acute distress. Skin: Warm, dry, intact. Head: Normocephalic, atraumatic. Eye: Normal conjunctiva, PERRL. No facial asymmetry noted. Cardiovascular: Regular rate and rhythm, no murmur, +S1/S2. Respiratory: Lungs are clear to auscultation, respirations unlabored, no crackles, no wheezing. Gastrointestinal: Soft, nontender, non-distended. No guarding or rebound tenderness. Extremities: No edema, no cyanosis, no clubbing. 2+ radial pulse bilaterally, 2+ pedal pulse bilaterally. Neuro: No focal deficits observed. Conversant, moving all extremities. No overt cerebellar signs/incoordination. Psychiatric: Cooperative, appropriate affect. Discharge Plan Plan Patient Disposition: HOME (Self Care) Patient condition on transfer: Stable Care Plan Goals: Please continue taking Aspirin 81 and atorvastatin 40 mg once a day at night Please stop taking Acyclovir, cyclobenzaprine, dapagliflozin, glyburide, ibuprofen and prednisone Continue all other home medications as prescribed Please follow-up with your PCP and wildlife removal specialist within 1-2 week after discharge Follow-up with Dr. Byrne (Neurologist) for CN 6 palsy in 2 weeks, call [phone] for your appointment. If your symptoms worsen or if you develop new chest pain, shortness of breath, dizziness or new weakness - please come back to the ED immediately. Prescriptions/Referrals Prescriptions/Med Rec: New aspirin 81 mg Tablet,Delayed Release (Dr/Ec) 81 mg PO QDAY 30 Days Qty: 30 0RF atorvastatin 40 mg tablet 40 mg PO QDAY 30 Days Qty: 30 0RF Continued Ozempic 0.25 mg or 0.5 mg(2 mg/1.5 mL) pen injector 0.5 mg subcut QWEEK rabeprazole [AcipHex] 20 mg tablet,delayed release (DR/EC) 20 mg PO QDAY escitalopram oxalate [Lexapro] 20 mg tablet 20 mg PO QDAY carbamazepine [Carbatrol] 300 mg capsule, ER multiphase 12 hr 300 mg PO BID insulin glargine [Lantus U-100 Insulin] 100 unit/mL solution 10 unit subcut QPM Discontinued cyclobenzaprine 7.5 mg tablet 7.5 mg PO TID PRN (Reason: muscle spasm) Qty: 14 0RF ibuprofen [IBU] 800 mg tablet 800 mg PO TID PRN (Reason: pain) Qty: 30 0RF prednisone 10 mg tablet 30 mg PO BID Qty: 18 0RF Rx Instructions: administer with food or milk acyclovir 800 mg tablet 800 mg PO QID MDD Take 5 tablets a day for 7 day Qty: 35 0RF dapagliflozin propanediol [Farxiga] 10 mg tablet 10 mg PO QAM glyburide 5 mg PO BID glyburide 5 mg tablet 5 mg PO BID Patient Comments: TAKE 1 TABLET WITH BREAKFAST OR THE FIRST MAIN MEAL OF THE DAY ORALLY TWICE A DAY FOR 90 DAYS Referrals: Josh Caba MD [Primary Care Provider, Family Practice] Ankit Byrne MD [Physician, Neurology] Patient/Caregiver Discharge Instructions Education Materials: Effects of a Stroke on the ..., Understanding Vision Problems, Discharge Instructions for Stroke, Understanding Sixth Nerve Palsy, Treatment for Sixth Nerve Palsy, ED Double Vision (Diplopia) Print Language: Belgian Stand Alone Forms: [employer] Award Info., Patient Portal Info Letter Discharge Order Discharge Orders: Discharge (Routine); Ordered 03/14/25 Ordered By: Samuel Douglas Quality Discharge Quality Measures VTE prophylaxis MD Attestestation MD Attestation I have discussed and was present for the essential components of the discharge history, physical examination, diagnosis, and discharge treatment plan with the resident. I agree with the patient's discharge care as documented by the resident and amended herein by me. Rene Patiño DO. The patient understood all discharge instructions, all questions were answered satisfactorily. The patient was instructed to return to the Emergency Department is symptoms worsened or persisted. All imaging clear, patient will be discharged on aspirin and statin per neurology recommendations, will need to follow-up with primary care physician and neurology upon discharge, see resident note above for additional details. Patient was stable, afebrile, ambulatory and tolerating p.o. intake at time of discharge home. Although this document has been carefully reviewed, there may still be some phonetic and other typographical errors. These errors are purely grammatical due to imperfections in the software program and should not be construed in any way to compromise the substance of the patient's medical care during this visit.
--- NOTE | 2025-03-14 11:03 | PC.SS ---
SS met with patient regarding his d/c plan. Pt is alert/oriented. Pt was admitted for Stroke R/O. Pt confirmed demographic and contact information is correct on facesheet. Pt resides with . Pt ambulates independently without assistance or DME. Pt is ok with all ADLs. 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 Patient?s pharmacy of choice is [facility] [address]. Pt named his , Sofía Valerio medical decision maker if he is unable. Patient?s choice is to return home upon d/c. Pt states he is diabetic, takes oral medications for his diabetes, and insulin injections 1 X day. Pt is not on dialysis. Pt followed up with PCP yesterday. will provide transportation home. D/C plan: Return home Next of Kin: Sofía Valerio, , phone# [phone] PCP: Dr. Josh Caba Address: Correct on facesheet
--- NOTE | 2025-03-14 11:54 | PC.PT ---
PT eval only. Patient is I with transfers and ambulation without AD.
[2025-03-14 12:00] VITALS: BP 142/83; PULSE 105; PULSE 109; RESP 18; TEMP 36.5; O2SAT 100
--- NOTE | 2025-03-14 23:27 | PD.VPROG1 ---
Telemedicine visit statement This visit was conducted with the use of phone was obtained on 03/14/25. Documentation for date of: 03/14/25 Subjective Subjective Interval history: Patient is seen in telemetry. Continued to have droopy eye and double vision. No new symptoms reported. Virtual exam Vital Signs Temp Pulse Resp BP Pulse Ox O2 Del Method 97.7 F 109 H 18 142/83 H 100 Room Air 03/14/25 12:00 03/14/25 12:00 03/14/25 12:00 03/14/25 12:00 03/14/25 12:00 03/14/25 12:00 Objective Labs 03/14/25 04:44 03/14/25 04:44 Labs: Laboratory Results - last 24 hr 03/14/25 04:44 WBC 8.7 RBC 4.98 Hgb 14.6 Hct 43.6 MCV 88 MCH 29.3 MCHC 33.5 RDW Std Deviation 39.9 Plt Count 221 Neut % (Auto) 72 Lymph % (Auto) 17 [place] % (Auto) 8 Eos % (Auto) 1 Baso % (Auto) 1 Neut # (Auto) 6.3 Lymph # (Auto) 1.5 [place] # (Auto) 0.7 Eos # (Auto) 0.1 Baso # (Auto) 0.0 Immature Gran # (Auto) 0.04 H Absolute Nucleated RBC 0.00 Immature Gran % 1 H Nucleated RBC % 0 Sodium 141 Potassium 4.3 Chloride 101 Carbon Dioxide 28.2 Anion Gap 12 BUN 12 Creatinine 0.9 Estim Creat Clear Calc 112.6 eGFR > 60 BUN/Creatinine Ratio [address] Glu mg/dL 137 H Hemoglobin A1c 6.4 H Calculated Osmolality 282 Calcium 9.8 Phosphorus 3.5 Magnesium 2.4 Triglycerides 125 Cholesterol 184 LDL Cholesterol, Calc 120 HDL Cholesterol 39 L Cholesterol/HDL Ratio 4.7 Assessment & Plan Problem List (1) Ptosis: Status: Acute Assessment and plan: Secondary to 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 Stable for discharge from neurology standpoint and I will see him back in 2 weeks. (2) Double vision: Status: Acute Assessment and plan: Continue to use the eye patch while driving and other times tried to extend the extraocular movement laterally (3) Cranial nerve palsy: Status: Acute Assessment and plan: Secondary to diabetes, should improve with time continue with eye movement exercises
== END 2025-03-14 13:37 | disposition home or self-care (01) | DRG 123 ==
LOC: SERX 09:35 → SERHOLD 11:19 → S2NX 14:13
PROVIDERS: Admitting Provider Student in an Organized Health Care Education/Training Program; Emergency Provider Emergency Medicine; PCP Family Medicine; Visit Provider Student in an Organized Health Care Education/Training Program
DX: H49.21 Sixth [abducent] nerve palsy, right eye (principal); H53.2 Diplopia; E11.319 Type 2 diabetes mellitus with unspecified diabetic retinopathy without macular edema; E66.9 Obesity, unspecified; F41.1 Generalized anxiety disorder; H02.401 Unspecified ptosis of right eyelid; F39 Unspecified mood [affective] disorder; R29.810 Facial weakness; Z68.32 Body mass index [BMI] 32.0-32.9, adult; Z79.4 Long term (current) use of insulin; Z79.82 Long term (current) use of aspirin; Z79.85 Long-term (current) use of injectable non-insulin antidiabetic drugs; Z79.899 Other long term (current) drug therapy; Z88.2 Allergy status to sulfonamides
CPT/HCPCS: 36415; 70450; 70496; 70498; 70553; 71045; 80048; 80053; 80061; 80307; 81001; 83036; 83735; 84100; 84484; 85025; 85610; 85730; 93005; 93306; 96365; 96366; 96372; 97161; 99285; A4649; A9577; J1644; J3475; Q9967; A9270